=== PATIENT | female | born 1965 | race Caucasian/White ===

== ENCOUNTER → 2024-07-28 10:53 | Outpatient (REF) | payer OTHER, SELFPAY | LOC: WDC 10:53 | PROVIDERS: ATTENDING PHYSICIAN Physician Assistant | DX: Z12.31 Encounter for screening mammogram for malignant neoplasm of breast (principal) | CPT/HCPCS: 77063; 77067 ==

== ENCOUNTER 2024-08-22 06:13 | Day surgery (SDC) | payer OTHER, SELFPAY ==
[2024-08-22 07:49] VITALS: BP 137/75
[2024-08-22 07:54] VITALS: BMI 44.2
[2024-08-22 07:55] VITALS: BMI 44.2
[2024-08-22 09:45] VITALS: BP 111/73
[2024-08-22 10:00] VITALS: BP 132/81
[2024-08-22 10:15] VITALS: BP 139/77
== END 2024-08-22 10:45 | disposition home or self-care (01) ==
LOC: SDS 06:13
PROVIDERS: ATTENDING PHYSICIAN Internal Medicine Gastroenterology
DX: Z12.11 Encounter for screening for malignant neoplasm of colon (principal); D12.3 Benign neoplasm of transverse colon; K57.30 Diverticulosis of large intestine without perforation or abscess without bleeding; K64.8 Other hemorrhoids; K21.9 Gastro-esophageal reflux disease without esophagitis; K22.89 Other specified disease of esophagus; K44.9 Diaphragmatic hernia without obstruction or gangrene; R13.10 Dysphagia, unspecified; R12 Heartburn
CPT/HCPCS: 45380; 43239; 88305